=== PATIENT | male | born 1985 | race African-American/Black ===

== ENCOUNTER 2019-10-03 21:14 | Emergency (ER) | payer OTHER ==
--- NOTE | 2019-10-03 21:38 | ER Document Report ---
ED Medical Screen (RME) - General Chief Complaint: Rectal Bleeding Stated Complaint: RECTAL BLEEDING Time Seen by Provider: 10/03/19 21:32 Notes: Patient is a 34-year-old male who presents to the emergency department with a chief complaint of rectal bleeding. Patient states that for the past couple days he has noticed blood on the toilet paper, but today there was blood in the toilet bowl. Exam: Deferred, as the patient is in triage. He will be evaluated by provider when he is in the room. I have greeted and performed a rapid initial assessment of this patient. A comprehensive ED assessment and evaluation of the patient, analysis of test results and completion of medical decision making process will be conducted by an additional ED providers. Physical Exam - Vital signs Vitals: Temp Pulse Resp BP Pulse Ox 98.9 F 97 22 H 152/103 H 98 10/03/19 21:21 10/03/19 21:21 10/03/19 21:21 10/03/19 21:21 10/03/19 21:21 Course - Vital Signs Vital signs: Temp Pulse Resp BP Pulse Ox 98.9 F 97 22 H 152/103 H 98 10/03/19 21:21 10/03/19 21:21 10/03/19 21:21 10/03/19 21:21 10/03/19 21:21
[2019-10-03 22:54] LABS: ABSOLUTE BASOPHILS # (AUTO) 0.1 10^3/uL (0.0-0.2); ABSOLUTE EOSINOPHILS # (AUTO) 0.1 10^3/uL (0.0-0.6); ABSOLUTE LYMPHOCYTES (AUTO) 2.1 10^3/uL (0.5-4.7); ABSOLUTE MONOCYTES (AUTO) 0.9 10^3/uL (0.1-1.4); ABSOLUTE NEUT (AUTO) 5.3 10^3/uL (1.7-8.2); BASOPHILS % (AUTO) 1.2 % (0-2); HEMATOCRIT 42.5 % (37.9-51.0); HEMOGLOBIN 14.6 g/dL (13.5-17.0); LYMPHOCYTES % (AUTO) 24.4 % (13-45); MEAN CORPUSCULAR HEMOGLOBIN 29.9 pg (27.0-33.4); MEAN CORPUSCULAR HGB CONC 34.4 g/dL (32.0-36.0); MEAN CORPUSCULAR VOLUME 87 fl (80-97); MONOCYTES % (AUTO) 10.1 % (3-13); PLATELET COUNT 371 10^3/uL (150-450); RED CELL DISTRIBUTION WIDTH 14.2 % (11.5-14.0); SEGMENTED NEUTROPHILS % (AUTO) 63.3 % (42-78); TOTAL CELLS COUNTED % (AUTO) 100 %; WHITE BLOOD COUNT 8.4 10^3/uL (4.0-10.5)
[2019-10-03 23:01] LABS: ANION GAP 8 (5-19); BLOOD UREA NITROGEN 15 mg/dL (7-20); CALCIUM 9.6 mg/dL (8.4-10.2); CARBON DIOXIDE 33 mmol/L (22-30); CHLORIDE 100 mmol/L (98-107); GLUCOSE 73 mg/dL (75-110); POTASSIUM 4.1 mmol/L (3.6-5.0)
[2019-10-04] MEDS ORDERED: HYDROCORTISONE ACETATE 25 MG SUPP.RECT PR ONE (02:37)
--- NOTE | 2019-10-04 02:42 | ER Document Report ---
ED GI Bleed / Rectal Pain - General Chief Complaint: Rectal Bleeding Stated Complaint: RECTAL BLEEDING Time Seen by Provider: 10/03/19 21:32 Primary Care Provider: NATALY SDIHU PA-C [Primary Care Provider] - Follow up in 3-5 days Mode of Arrival: Ambulatory Information source: Patient Notes: 34-year-old male presented to ED for complaint of rectal bleeding. He states he also has some rectal pain. He states he is noted to blood on the toilet paper and around the stool each time he goes. He states his stools are soft or hard but not real hard. He states he does not have any medical history except for some muscle strains in his shoulder and took muscle relaxants for that. Patient is alert oriented respirations regular nonlabored speaking in full sentences - HPI Patient complains to provider of: Bright red bld from rect., Hemorrhoids, Rectal pain Onset: Other - Couple days Timing/Duration: Intermittent Quality of pain: Sharp Severity of symptoms: Moderate Pain Level: 3 Rectal bleeding: Bright red blood on paper Associated symptoms: Hard stools Exacerbated by: Other - Will stool Relieved by: Denies Similar symptoms previously: Yes Recently seen / treated by doctor: No - Related Data Allergies/Adverse Reactions: No Known Allergies Allergy (Verified 10/04/19 00:38) Past Medical History - General Information source: Patient - Social History Smoking Status: Current Every Day Smoker Cigarette use (# per day): Yes - 2 cigarettes a day Smoking Education Provided: Yes - 4 minutes Frequency of alcohol use: Occasional Drug Abuse: Marijuana Family History: Reviewed & Not Pertinent Patient has suicidal ideation: No Patient has homicidal ideation: No - Past Medical History Cardiac Medical History: Reports: None Pulmonary Medical History: Reports: None EENT Medical History: Reports: None Neurological Medical History: Reports: None Endocrine Medical History: Reports: None Renal/ Medical History: Reports: None Malignancy Medical History: Reports None GI Medical History: Reports: None Musculoskeletal Medical History: Reports Hx Musculoskeletal Trauma Skin Medical History: Reports None Psychiatric Medical History: Reports: None Traumatic Medical History: Reports: None Review of Systems - Review of Systems Constitutional: No symptoms reported EENT: No symptoms reported Cardiovascular: No symptoms reported Respiratory: No symptoms reported Gastrointestinal: Other - External hemorrhoid with minimal bleeding Genitourinary: No symptoms reported Male Genitourinary: No symptoms reported Musculoskeletal: No symptoms reported Skin: No symptoms reported Hematologic/Lymphatic: No symptoms reported Neurological/Psychological: No symptoms reported Physical Exam - Vital signs Vitals: Temp Pulse Resp BP Pulse Ox 98.9 F 97 22 H 152/103 H 98 10/03/19 21:21 10/03/19 21:21 10/03/19 21:21 10/03/19 21:21 10/03/19 21:21 Interpretation: Normal - General General appearance: Appears well, Alert - HEENT Head: Normocephalic, Atraumatic Eyes: Normal Pupils: PERRL - Respiratory Respiratory status: No respiratory distress Chest status: Nontender Breath sounds: Normal Chest palpation: Normal - Cardiovascular Rhythm: Regular Heart sounds: Normal auscultation Murmur: No - Abdominal Inspection: Normal Distension: No distension Bowel sounds: Normal Tenderness: Nontender Organomegaly: No organomegaly - Rectal Stool: Other - Small amount of bright red blood around the rectal area with large external hemorrhoid Hemorrhoids: External - Back Back: Normal, Nontender - Extremities General upper extremity: Normal inspection, Nontender, Normal color, Normal ROM, Normal temperature General lower extremity: Normal inspection, Nontender, Normal color, Normal ROM, Normal temperature, Normal weight bearing. No: Danielle's sign - Neurological Neuro grossly intact: Yes Cognition: Normal Orientation: AAOx4 [place] Coma Scale Eye Opening: Spontaneous [place] Coma Scale Verbal: Oriented [place] Coma Scale Motor: Obeys Commands [place] Coma Scale Total: 15 Speech: Normal Motor strength normal: LUE, RUE, LLE, RLE Sensory: Normal - Psychological Associated symptoms: Normal affect, Normal mood - Skin Skin Temperature: Warm Skin Moisture: Dry Skin Color: Normal Course - Re-evaluation Re-evalutation: 10/04/19 03:01 Patient was treated with Anusol suppository and discharged home with prescription for Anusol suppositories and instructed please follow-up with primary doctor. Patient verbalized understanding and agreement with treatment plan and patient was discharged home. - Vital Signs Vital signs: Temp Pulse Resp BP Pulse Ox 98.2 F 77 20 147/89 H 100 10/04/19 03:08 10/04/19 03:08 10/04/19 03:08 10/04/19 03:08 10/04/19 03:08 - Laboratory Result Diagrams: 10/03/19 22:30 10/03/19 22:30 Laboratory results interpreted by me: 10/03/19 10/03/19 22:30 22:30 RDW 14.2 H Carbon Dioxide 33 H Creatinine 1.36 H Glucose 73 L Discharge - Discharge Clinical Impression: External hemorrhoid, bleeding Condition: Stable Disposition: HOME, SELF-CARE Additional Instructions: Hemorrhoids You have hemorrhoids. These are formed by enlargement of veins around the anus. The cause is increased pressure in the veins, from or straining at bowel movements. Hemorrhoids often cause itching and bleeding with bowel movements. When a hemorrhoid becomes clotted, severe pain and swelling result. Soothing creams and suppositories are often prescribed. Warm sitz-baths may also decrease pain, swelling, and itching. Eat a high-fiber diet. Stool softeners such as Metamucil will help. Keep the area very clean. Medicated cleansing pads (such as Tucks) are useful after bowel movements. A hose-mounted shower unit (like a shower massager at low water pressure) can be used to clean around tender hemorrhoid tags. You should call the doctor or return if you develop fever, increasing pain, or an enlarging mass around the anus, or if you simply fail to improve with treatment. I have prescribed you Anusol. Please go to the pharmacist to get this pre scription. I have given you a dose in the emergency room. These follow-up with your primary care doctor. Please take a stool softener to prevent hard stools so that it will not increase the size of your hemorrhoid. FOLLOW-UP CARE: If you have been referred to a physician for follow-up care, call the physicians office for an appointment as you were instructed or within the next two days. If you experience worsening or a significant change in your symptoms, notify the physician immediately or return to the Emergency Department at any time for re-evaluation. Prescriptions: Hydrocortisone Acetate [Anusol-Hc] 25 mg RC Q6 PRN #10 supp.rect PRN Reason: Forms: Elevated Blood Pressure, Smoking Cessation Education, Return to Work Referrals: NATALY SIDHU PA-C [Primary Care Provider] - Follow up in 3-5 days
[2019-10-04 03:08] VITALS: BP 147/89
== END 2019-10-04 03:08 | disposition home or self-care (01) ==
LOC: ER 21:14
DX: K64.4 Residual hemorrhoidal skin tags (principal); K62.5 Hemorrhage of anus and rectum; F17.210 Nicotine dependence, cigarettes, uncomplicated
CPT/HCPCS: 99406; 99283; 36415; 85025; 80048; J3490